=== PATIENT | female | born 1995 | race Caucasian/White ===

== ENCOUNTER 2023-05-08 09:38 | Emergency (ER) | payer BC ==
[~2023-05-08] VITALS: Ht 154.9 cm; Wt 45.4 kg
[2023-05-08] MEDS ORDERED: CABERGOLINE PO (09:46)
[2023-05-08 09:47] VITALS: BP_SYST 114; PULSE 87; RESP 16; TEMP 97.5; O2SAT 98
[2023-05-08 10:23] VITALS: BP_SYST 104; PULSE 101; RESP 16; TEMP 97.8; O2SAT 96
== END 2023-05-08 10:22 | disposition home or self-care (01) ==
LOC: SED 09:38
DX: A04.72 Enterocolitis due to Clostridium difficile, not specified as recurrent (principal); R19.7 Diarrhea, unspecified; Z79.899 Other long term (current) drug therapy
CPT/HCPCS: 99281